=== PATIENT | female | born 1940 | race Caucasian/White ===

== ENCOUNTER → 2016-06-17 | Outpatient (CLI) | payer OTHER ==
[~2016-06-17] MED LIST: ASPIRIN PO; JANUMET 50-1,1 UDTAB PO; LEVOTHYROXINE100 MCG PO; LORAZEPAM1 MG PO; TOPROL XL PO; VALSARTAN-HCTZ1 EAC4 PO; VYTORIN 10-40 T1 TAB PO
--- NOTE | ~2016-06-17 | MY11 ---
[facility] A Service of [facility] RADIOLOGY TEXT RESULTS PATIENT: GIOVANNY ALBARRAN LOCATION: [facility] : 42 UNIT #: [id number] AGE: [address]: Polo Cantor MD SEX: F ORDER DR: [id number] [facility] [address] [place] [address]. [place], [place] [address] [id number] O MR#: [id number] Acc #: [id number] NAME: GIOVANNY ALBARRAN : 1940 SEX: F STUDY DATE/TIME: 06/17/2016 11:20 UNIT: [facility] ROOM: STUDY DESCRIPTION: MY Mammogram Screening Dig Rafa Attending Physician: Polo Cantor M.D. Referring Physician: Polo Cantor M.D. Ordering Physician: Polo Cantor M.D. Primary Care Physician: Polo Cantor M.D. MEDICAL IMAGING REPORT This report is preliminary unless electronic signature is present EXAM Digital screening mammogram. DATE OF EXAM 06/17/2016 LOCATION [facility]. HISTORY 75-year-old woman no risk elevation. Personal history of lymphoma. Annual screen. COMPARISON Comparison mammograms date to 03/28/2008, with most recent 05/31/2013. TECHNIQUE Digital imaging of each breast was completed utilizing screening protocol. Review includes FDA-approved CAD device. FINDINGS Breast parenchyma is fatty replaced. Numerous calcifications are noted with characteristics of a secretory origin. I see no suspicious microcalcifications. There is no interval occurring breast mass, and no suspicious architectural disturbance. There are 2 faint focal parenchymal densities stable in the upper/outer quadrant of the right breast. IMPRESSION Stable benign mammogram. Annual screening recommended. Patients over the age of 40 are entered into a reminder system with target due date for the next mammogram. A result letter will also be sent to the patient. [facility] A Service [facility] RADIOLOGY TEXT RESULTS PATIENT: GIOVANNY ALBARRAN LOCATION: [facility] : 42 UNIT #: [id number] AGE: [address]: Polo Cantor MD SEX: F ORDER DR: BIRADS: 2 Benign findings. Dictated by... Kalyan Jaffe M.D. THIS IS AN ELECTRONICALLY VERIFIED REPORT Kalyan Jaffe M.D. at 06/18/2016 8:08 AM CATHERINE/nano TD: 06/17/2016 16:06 JOB #: [id number] MEDICAL IMAGING REPORT Page 1 of 1 COPY
== END | disposition home or self-care (01) ==
LOC: CWCC 10:54
DX: Z12.31 Encounter for screening mammogram for malignant neoplasm of breast (principal); Z85.72 Personal history of non-Hodgkin lymphomas
CPT/HCPCS: G0202